=== PATIENT | female | born 1995 | race Two or more races ===

== ENCOUNTER 2022-03-16 17:00 | Observation (INO) | payer OTHER ==
[~2022-03-16] VITALS: Ht 167.6 cm; Wt 88.0 kg
== END 2022-03-16 18:25 | disposition home or self-care (01) ==
LOC: MLD 17:00
PROVIDERS: ADMIT Obstetrics & Gynecology; ATTEND Obstetrics & Gynecology
DX: O62.9 Abnormality of forces of labor, unspecified (principal); Z3A.40 40 weeks gestation of pregnancy
CPT/HCPCS: G0378